=== PATIENT | female | born 1960 | race Caucasian/White ===

== ENCOUNTER 2024-10-30 10:21 | Inpatient (IN) | payer MEDICARE, OTHER ==
[~2024-10-30] VITALS: Ht 172.7 cm; Wt 66.7 kg
[2024-10-30] MEDS ORDERED: IPRATROPIUM NEB FS 0.5 MG/2.5 ML AMPUL.NEB ONE (11:04)
[2024-10-30] MEDS ORDERED: ALBUTEROL FS 2.5 MG/3 ML VIAL.NEB ONE (11:04)
[2024-10-30] MEDS: ALBUTEROL FS 2.5 MG/3 ML VIAL.NEB NEB ONE (11:07)
[2024-10-30] MEDS: IPRATROPIUM NEB FS 0.5 MG/2.5 ML AMPUL.NEB NEB ONE (11:07)
[2024-10-30 11:08] VITALS: O2SAT 96
[2024-10-30 11:23] LABS: BASOPHILS % (AUTO) 0.4 % (0.0-2.0); EOSINOPHILS % (AUTO) 0.1 % (0.0-6.0); HEMATOCRIT 46 % (33-45); HEMOGLOBIN 15.5 g/dL (11.5-14.8); LYMPHOCYTES # (AUTO) 1.4 K/uL (0.8-4.8); LYMPHOCYTES % (AUTO) 13.7 % (20.0-44.0); MEAN CORPUSCULAR HEMOGLOBIN 32 PG (26.0-33.0); MEAN CORPUSCULAR HGB CONC 34 g/dl (31.0-36.0); MEAN CORPUSCULAR VOLUME 93 fL (82-100); MONOCYTES # (AUTO) 0.6 K/uL (0.1-1.30); MONOCYTES % (AUTO) 6.1 % (2.0-12.0); NEUTROPHILS # (AUTO) 7.9 K/uL (1.8-8.9); NEUTROPHILS % (AUTO) 79.7 % (43.0-81.0); PLATELET COUNT (AUTO) 437 K/uL (150-450); RED BLOOD CELL COUNT(AUTO) 4.89 MIL/uL (4.0-5.2); RED CELL DISTRIBUTION WIDTH 13.6 % (11.5-15.0)
[2024-10-30 11:28] VITALS: O2SAT 99
[2024-10-30 11:31] LABS: CALCIUM, SERUM 9.8 mg/dL (8.5-10.1); CARBON DIOXIDE 23 mmol/L (21-32); CHLORIDE 97 mmol/L (98-107); CREATININE 0.6 mg/dL (0.6-1.3); GLUCOSE 104 mg/dL (74-106); POTASSIUM 3.4 mmol/L (3.5-5.1); SODIUM SERUM 134 mmol/L (136-145); UREA NITROGEN, BLOOD 20 mg/dL (7-18)
[2024-10-30] MEDS ORDERED: methylPREDNISolone SOD SUCC 125 MG/2ML VIAL ONE (11:35)
[2024-10-30] MEDS ORDERED: LORAZEPAM INJ 2 MG/ML VIAL ONE (11:35)
[2024-10-30 11:43] LABS: ALANINE AMINOTRANSFERASE 19 U/L (12-78); ALBUMIN 4.4 g/dL (3.4-5.0); ALKALINE PHOSPHATASE 134 U/L (46-116); ASPARTATE AMINOTRANSFERASE 18 U/L (15-37); BILIRUBIN,DIRECT 0.1 mg/dL (0.0-0.2); BILIRUBIN,TOTAL 0.5 mg/dL (0.2-1.0); NT-PRO BNP 193 pg/mL (0-125); TOTAL PROTEIN, SERUM 8.1 g/dL (6.4-8.2)
[2024-10-30] MEDS: methylPREDNISolone SOD SUCC 125 MG/2ML VIAL IV ONE (11:43)
[2024-10-30] MEDS: LORAZEPAM INJ 2 MG/ML VIAL IV ONE (11:44)
[2024-10-30] MEDS ORDERED: ONDANSETRON HCL/PF 4 MG/2 ML VIAL ONE (11:50)
[2024-10-30] MEDS ORDERED: DIAZEPAM 5 MG TABLET ONE (11:54)
[2024-10-30] MEDS: ONDANSETRON HCL/PF - ER 4 MG/2 ML VIAL IV ONE (12:03)
[2024-10-30] MEDS: DIAZEPAM 5 MG TABLET PO ONE (12:03)
[2024-10-30] MEDS ORDERED: IOHEXOL-300 100 ML VIAL IV ONE (13:08)
[2024-10-30] MEDS ORDERED: IV NS 0.9% 250 ML IV ONE (13:08)
[2024-10-30] MEDS ORDERED: KETOROLAC TROMETHAMINE 15 MG/ML VIAL ONE (14:36)
[2024-10-30] MEDS: KETOROLAC TROMETHAMINE 15 MG/ML VIAL IV ONE (14:40)
[2024-10-30] MEDS ORDERED: MORPHINE SULFATE INJ 4 MG/ML DISP.SYRIN ONE (15:57)
[2024-10-30] MEDS: MORPHINE SULFATE INJ 2 MG/ML DISP.SYRIN IV ONE (16:01)
[2024-10-30] MEDS ORDERED: ROSU40TA PO (17:03)
[2024-10-30] MEDS ORDERED: NICO-676 TD (17:03)
[2024-10-30] MEDS ORDERED: LEVE250T2 PO (17:03)
[2024-10-30] MEDS ORDERED: ASPI-1169 PO (17:03)
[2024-10-30] MEDS ORDERED: PANT40TA2 PO (17:03)
[2024-10-30] MEDS ORDERED: DIAZ10TA4 PO (17:03)
[2024-10-30] MEDS ORDERED: QUET50TA PO (17:03)
[2024-10-30] MEDS ORDERED: ALBU8.5H8 IH (17:03)
[2024-10-30] MEDS ORDERED: HYDR-3980 PO (17:03)
[2024-10-30] MEDS ORDERED: IPRA3AMP23 IH (17:03)
[2024-10-30] MEDS ORDERED: CARI350T27 PO (17:03)
[2024-10-30] MEDS ORDERED: MAGNESIUM HYDROXIDE 30 ML UDC PO PRN (18:00)
[2024-10-30] MEDS ORDERED: Z GUARD REMEDY 4 OZ OINT TP PRN (18:00)
[2024-10-30] MEDS ORDERED: LEVETIRACETAM (250 MG) 250 MG TABLET PO PRN (18:00)
[2024-10-30] MEDS ORDERED: ACETAMINOPHEN 325 MG TABLET PO PRN (18:00)
[2024-10-30] MEDS: ENOXAPARIN SODIUM 40 MG/0.4 ML DISP.SYRIN SQ SCH (18:23)
[2024-10-30 18:45] VITALS: BP 122/65; TEMP 98.6; O2SAT 96
[2024-10-30] MEDS: ONDANSETRON HCL/PF 4 MG/2 ML VIAL IVP PRN (20:06)
[2024-10-30] MEDS: MORPHINE SULFATE INJ 2 MG/ML DISP.SYRIN IV PRN (20:08)
[2024-10-30] MEDS: methylPREDNISolone SOD SUCC 40 MG/ML VIAL IV SCH (20:49)
[2024-10-30] MEDS: ZOLPIDEM TARTRATE 5 MG TABLET PO PRN (22:04)
[2024-10-30] MEDS: CARISOPRODOL 350 MG TABLET PO PRN (23:11)
[2024-10-31] VITALS: BP 118/79; TEMP 98.4; O2SAT 97
[2024-10-31] MEDS: MAG HYDROX/AL HYDROX/SIMETH 30 ML UDC PO PRN (00:35)
[2024-10-31 06:11] VITALS: O2SAT 96
[2024-10-31] MEDS: IPRATROPIUM NEB FS 0.5 MG/2.5 ML AMPUL.NEB IH PRN (06:11)
[2024-10-31] MEDS: ALBUTEROL FS 2.5 MG/3 ML VIAL.NEB IH PRN (06:11)
[2024-10-31 06:21] VITALS: O2SAT 99
[2024-10-31 07:27] LABS: BASOPHILS % (AUTO) 0.1 % (0.0-2.0); EOSINOPHILS % (AUTO) 0.1 % (0.0-6.0); HEMATOCRIT 42 % (33-45); HEMOGLOBIN 14.7 g/dL (11.5-14.8); LYMPHOCYTES # (AUTO) 1.6 K/uL (0.8-4.8); LYMPHOCYTES % (AUTO) 14.8 % (20.0-44.0); MEAN CORPUSCULAR HEMOGLOBIN 32 PG (26.0-33.0); MEAN CORPUSCULAR HGB CONC 35 g/dl (31.0-36.0); MEAN CORPUSCULAR VOLUME 91 fL (82-100); MONOCYTES # (AUTO) 0.6 K/uL (0.1-1.30); MONOCYTES % (AUTO) 5.7 % (2.0-12.0); NEUTROPHILS # (AUTO) 8.4 K/uL (1.8-8.9); NEUTROPHILS % (AUTO) 79.3 % (43.0-81.0); PLATELET COUNT (AUTO) 461 K/uL (150-450); RED BLOOD CELL COUNT(AUTO) 4.59 MIL/uL (4.0-5.2); RED CELL DISTRIBUTION WIDTH 13.5 % (11.5-15.0); WHITE BLOOD COUNT (AUTO) 10.6 K/uL (4.3-11.0)
[2024-10-31] MEDS: PANTOPRAZOLE 40 MG TABLET.DR PO SCH (07:52)
[2024-10-31 09:10] LABS: CALCIUM, SERUM 9.6 mg/dL (8.5-10.1); CREATININE 0.6 mg/dL (0.6-1.3); MAGNESIUM 2.8 mg/dL (1.8-2.4); PHOSPHORUS 4.6 mg/dL (2.5-4.9); POTASSIUM 3.8 mmol/L (3.5-5.1)
[2024-10-31] MEDS: DIAZEPAM 5 MG TABLET PO SCH (09:27)
[2024-10-31] MEDS: QUETIAPINE FUMARATE 25 MG TABLET PO SCH (09:28)
[2024-10-31] MEDS: ASPIRIN 81 MG TAB.CHEW PO SCH (09:28)
[2024-10-31] MEDS: NICOTINE PATCH (7MG) 7 MG PATCH.TD24 TD SCH (09:29)
[2024-10-31] MEDS: ATORVASTATIN 40 MG TABLET PO SCH (09:29)
[2024-10-31 09:46] LABS: THYROID STIMULATING HORMONE 1.79 uIU/mL (0.358-3.74)
[2024-10-31] MEDS: METOPROLOL TARTRATE 50 MG TABLET PO SCH (10:00)
[2024-10-31] MEDS ORDERED: ATORVASTATIN 10 MG TABLET PO SCH (10:00)
[2024-10-31] MEDS ORDERED: IOHEXOL-350 100 ML VIAL IV ONE (10:57)
[2024-10-31] MEDS ORDERED: CT SWABBABLE VALVE TRANS SET 1 EA INFUS.SET MC ONE (10:57)
[2024-10-31] MEDS ORDERED: IV NS 0.9% 250 ML IV ONE (10:57)
[2024-10-31] MEDS: IV NS 0.9% 500 ML IV ONE (11:00)
[2024-10-31 15:03] VITALS: O2SAT 96
[2024-10-31 15:23] VITALS: O2SAT 99
[2024-10-31 20:00] VITALS: BP 98/61; TEMP 98.2; O2SAT 96
[2024-11-01] VITALS (7 sets, daily range): BP systolic 96–145; BP diastolic 55–69; TEMP 98.1–98.4; O2SAT 95–100
[2024-11-01 07:14] LABS: HEMATOCRIT 39 % (33-45); HEMOGLOBIN 13.5 g/dL (11.5-14.8); LYMPHOCYTES # (AUTO) 0.6 K/uL (0.8-4.8); LYMPHOCYTES % (AUTO) 6.6 % (20.0-44.0); MEAN CORPUSCULAR HEMOGLOBIN 32 PG (26.0-33.0); MEAN CORPUSCULAR HGB CONC 35 g/dl (31.0-36.0); MEAN CORPUSCULAR VOLUME 93 fL (82-100); MONOCYTES # (AUTO) 0.2 K/uL (0.1-1.30); MONOCYTES % (AUTO) 2.5 % (2.0-12.0); NEUTROPHILS # (AUTO) 8.3 K/uL (1.8-8.9); NEUTROPHILS % (AUTO) 90.9 % (43.0-81.0); PLATELET COUNT (AUTO) 358 K/uL (150-450); RED BLOOD CELL COUNT(AUTO) 4.16 MIL/uL (4.0-5.2); RED CELL DISTRIBUTION WIDTH 13.6 % (11.5-15.0); WHITE BLOOD COUNT (AUTO) 9.2 K/uL (4.3-11.0)
[2024-11-01 07:27] LABS: CALCIUM, SERUM 9.1 mg/dL (8.5-10.1); CREATININE 0.6 mg/dL (0.6-1.3); MAGNESIUM 2.7 mg/dL (1.8-2.4); PHOSPHORUS 3.7 mg/dL (2.5-4.9); POTASSIUM 4.1 mmol/L (3.5-5.1)
[2024-11-01 07:34] LABS: CHOLESTEROL 164 mg/dL (<200); HDL CHOLESTEROL 60 mg/dL (40-60); LDL 80 mg/dL (0-99); TRIGLYCERIDES 59 mg/dL (30-150)
[2024-11-01] MEDS: MORPHINE SULFATE INJ 4 MG/ML DISP.SYRIN IV PRN (09:18)
[2024-11-01] MEDS ORDERED: MORPHINE SULFATE INJ 2 MG/ML DISP.SYRIN IV PRN (10:00)
[2024-11-01] MEDS: HYDROCODONE/APAP 10/325MG TABLET PO PRN (12:14)
[2024-11-01] MEDS: TEMAZEPAM 15 MG CAPSULE PO PRN (22:00)
[2024-11-02] VITALS (8 sets, daily range): BP systolic 103–139; BP diastolic 51–68; TEMP 97.5–98.1; O2SAT 96–100
[2024-11-02 06:39] LABS: BASOPHILS % (AUTO) 0.3 % (0.0-2.0); EOSINOPHILS % (AUTO) 0.1 % (0.0-6.0); HEMATOCRIT 41 % (33-45); HEMOGLOBIN 13.7 g/dL (11.5-14.8); LYMPHOCYTES # (AUTO) 1.5 K/uL (0.8-4.8); MEAN CORPUSCULAR HEMOGLOBIN 32 PG (26.0-33.0); MEAN CORPUSCULAR HGB CONC 34 g/dl (31.0-36.0); MEAN CORPUSCULAR VOLUME 93 fL (82-100); MONOCYTES # (AUTO) 0.5 K/uL (0.1-1.30); MONOCYTES % (AUTO) 5.1 % (2.0-12.0); NEUTROPHILS # (AUTO) 8.1 K/uL (1.8-8.9); NEUTROPHILS % (AUTO) 79.5 % (43.0-81.0); PLATELET COUNT (AUTO) 384 K/uL (150-450); RED BLOOD CELL COUNT(AUTO) 4.35 MIL/uL (4.0-5.2); WHITE BLOOD COUNT (AUTO) 10.1 K/uL (4.3-11.0)
[2024-11-02 07:07] LABS: CALCIUM, SERUM 9.1 mg/dL (8.5-10.1); CREATININE 0.5 mg/dL (0.6-1.3); MAGNESIUM 2.8 mg/dL (1.8-2.4); PHOSPHORUS 3.9 mg/dL (2.5-4.9); POTASSIUM 4.3 mmol/L (3.5-5.1)
[2024-11-02 16:12] LABS: INR 0.99 (0.91-1.10); PROTHROMBIN TIME 10.5 SECS (9.2-11.1)
[2024-11-02] MEDS: DIAZEPAM 5 MG TABLET PO ONE (23:07)
[2024-11-03] VITALS (7 sets, daily range): BP systolic 96–132; BP diastolic 52–81; TEMP 97.5–98.1; O2SAT 95–99
[2024-11-04 07:30] VITALS: BP 104/60; TEMP 98.1; O2SAT 97
== END 2024-11-04 11:00 | disposition short-term general hospital (02) | DRG 303 ==
LOC: ER 10:32 → TELE 17:13 → MED 11-03 16:21
PROVIDERS: ADMIT Student in an Organized Health Care Education/Training Program; ATTEND Student in an Organized Health Care Education/Training Program
DX: I25.10 Atherosclerotic heart disease of native coronary artery without angina pectoris (principal); J44.1 Chronic obstructive pulmonary disease with (acute) exacerbation; E86.0 Dehydration; E87.6 Hypokalemia; I25.2 Old myocardial infarction; Z20.822 Contact with and (suspected) exposure to COVID-19; F17.210 Nicotine dependence, cigarettes, uncomplicated; Z71.6 Tobacco abuse counseling; N28.1 Cyst of kidney, acquired; D49.7 Neoplasm of unspecified behavior of endocrine glands and other parts of nervous system; R91.1 Solitary pulmonary nodule; R93.1 Abnormal findings on diagnostic imaging of heart and coronary circulation; R56.9 Unspecified convulsions
CPT/HCPCS: 36415; 71045-TC; 75574; 80048-TC; 80061-TC; 80076-TC; 83735-TC; 83880; 84100-TC; 84439-TC; 84443-TC; 84484-TC; 85025-TC; 85610-TC; 93307-TC; 94799-TC; G0378; J1650; J1885; J2060; J2270; J2405; J2919; J3490; J7040; J7050; Q9967